=== PATIENT | female | born 1995 | race Caucasian/White ===

== ENCOUNTER 2018-12-23 12:18 | Emergency (ER) | payer OTHER ==
[2018-12-23 13:11] VITALS: BP 122/77
--- NOTE | 2018-12-23 15:31 | UC ---
Upper Extremity HPI - HPI Summary HPI Summary: 23-year-old female presents with complaints of right thumb pain and swelling after falling while skiing. She had a repair of the extensor tendon to this thumb back in June 2018. Range of motion limited by pain. Denies any numbness or tingling. - History of Current Complaint Chief Complaint: UCUpperExtremity Stated Complaint: RIGHT THUMB INJURY Time Seen by Provider: 12/23/18 15:13 Hx Obtained From: Patient Hx Last Menstrual Period: 12/05/18 Pain Intensity: 3 - Allergies/Home Medications Allergies/Adverse Reactions: Allergies Allergy/AdvReac Type Severity Reaction Status Date / Time No Known Allergies Allergy Verified 12/23/18 13:08 Home Medications: Home Medications Aspirin TAB* [Aspirin 325 MG TAB*] 325 mg PO ONCE 12/23/18 [History Confirmed ] PMH/Surg Hx/FS Hx/Imm Hx Previously Healthy: Yes - Denies significant PMH - Surgical History Surgical History: Yes Surgery Procedure, Year, and Place: right thumb tendon repair 06/2018 - Family History Known Family History: Positive: Non-Contributory - Social History Occupation: Unemployed Lives: With Family Alcohol Use: Occasionally Substance Use Type: None Smoking Status (MU): Never Smoked Tobacco Review of Systems All Other Systems Reviewed And Are Negative: Yes Skin: Negative: Bruising Respiratory: Positive: Negative Cardiovascular: Positive: Negative Gastrointestinal: Positive: Negative Genitourinary: Positive: Negative Motor: Negative: Weakness Neurovascular: Negative: Decreased Sensation Musculoskeletal: Positive: Other: - See HPI Neurological: Positive: Negative Is Patient Immunocompromised?: No Physical Exam - Summary Physical Exam Summary: GENERAL APPEARANCE: Well developed, well nourished, alert and cooperative, and appears to be in no acute distress. HEAD: Atraumatic. normocephalic. NECK: Neck supple, non-tender. CARDIAC: Normal S1 and S2. No S3, S4 or murmurs. Rhythm is regular. There is no peripheral edema, cyanosis or pallor. Extremities are warm and well perfused. Capillary refill is less than 2 seconds. LUNGS: Clear to auscultation without rales, rhonchi, wheezing or diminished breath sounds. ABDOMEN: Positive bowel sounds. Soft, nondistended, nontender. No guarding or rebound. No masses or hepatosplenomegally. MUSKULOSKELETAL: Tenderness at the base of right thumb with mild ecchymosis and swelling. No gross deformity. Both flexion and extension are decreased due to pain. Circulation and sensation intact distally. SKIN: Skin normal color, texture and turgor. Triage Information Reviewed: Yes Vital Signs: Initial Vital Signs Temp 97 F 12/23/18 13:05 Pulse 78 12/23/18 13:05 Resp 16 12/23/18 13:05 BP 122/77 12/23/18 13:05 Pulse Ox 99 12/23/18 13:05 Vital Signs Reviewed: Yes Diagnostics - Radiology No standard instances Radiology Interpretation Completed By: Radiologist Summary of Radiographic Findings: Patient Name: AMRIK MCCULLOUGH Medical Record#: [id number]. Ordering Physician: Sandeep Forrest MD Acct.#: [id number]. : 1995 Age: 23 Sex: F Location: [facility]. Exam Date: 1330 ADM Status: REG ER. Order Information: THUMB RIGHT. Accession Number: [id number]. CPT: 19721. HISTORY: PAIN S/P INJURY. COMPARISONS: None. VIEWS : 3 , Frontal, lateral, and oblique views of the first digit of the right hand. FINDINGS: BONE DENSITY: Normal. BONES: There is post surgical change to the base of the proximal phalanx of the first digit. JOINTS: There is no arthropathy. ALIGNMENT: There is no dislocation. SOFT TISSUES: There is soft tissue swelling centered at the first MCP joint. OTHER FINDINGS: None. IMPRESSION: POSTSURGICAL CHANGE. SOFT TISSUE SWELLING. NO ACUTE OSSEOUS INJURY. Upper Extremity Course/Dx - Course Course Of Treatment: 23-year-old female presents with complaints of right thumb pain and swelling after falling while skiing. She had a repair of the extensor tendon to this thumb back in June 2018. Range of motion limited by pain. Denies any numbness or tingling. Afebrile. Vital signs stable. Exam reveals a young adult female in no acute distress with tenderness at the base of right thumb with mild ecchymosis and swelling. No gross deformity. Both flexion and extension are decreased due to pain. Circulation and sensation intact distally. X-ray showed postoperative changes but no acute fracture or dislocation. Patient was placed in a thumb spica splint by the RN. Circulation and sensation intact pre-and post-application. Recommending conservative treatment with [id number] analgesics and RICE. Patient is from out of town and is to follow-up with her orthopedic surgeon who performed the surgery when she returns home. Anticipatory guidance and warning symptoms were reviewed with the patient. Verbalizes understanding and agrees with plan of care. - Differential Dx/Diagnosis Differential Diagnosis/HQI/PQRI: Contusion, Fracture (Closed), Strain Provider Diagnosis: Sprain of right thumb Discharge - Sign-Out/Discharge Documenting (check all that apply): Patient Departure All imaging exams completed and their final reports reviewed: Yes - Discharge Plan Condition: Stable Disposition: HOME Patient Education Materials: Skier's Thumb (ED) Referrals: No Primary Care Phys,NOPCP [Primary Care Provider] - Additional Instructions: The x-ray of your thumb performed in the clinic today showed no fracture. I suspect that you sprained the thumb. Rest the hand as much as possible. No heavy lifting or strenuous exercise. Apply ice to the affected area for 15-20 minutes at least 4 times a day. Wear the splint applied in the clinic today for support. You may remove to shower but should wear at all other times. Keep your hand elevated at the level of your heart to reduce swelling. Use [id number] acetaminophen (Tylenol) or ibuprofen (Advil or Motrin) according to directions as needed for pain. Follow up with your orthopedic surgery when you return home. Seek immediate medical attention in the emergency room if you have severe pain not managed with pain medication, you develop numbness or tingling in the hand or fingers, I have any worsening of symptoms. - Billing Disposition and Condition Condition: STABLE Disposition: Home
== END 2018-12-23 15:48 | disposition home or self-care (01) ==
LOC: UCCORT 12:18
DX: S63.601A Unspecified sprain of right thumb, initial encounter (principal); V00.321A Fall from snow-skis, initial encounter; Y93.23 Activity, snow (alpine) (downhill) skiing, snowboarding, sledding, tobogganing and snow tubing; Y92.9 Unspecified place or not applicable
CPT/HCPCS: 99203; G0463